=== PATIENT | female | born 1980 | race Caucasian/White ===

== ENCOUNTER → 2019-05-06 | Outpatient (CLI) | payer OTHER, SELFPAY ==
[2016-08-08 18:17] VITALS: BMI 39.9
[2019-05-06 15:44] LABS: Absolute Lymphocyte Count 2.39 X10^3/uL (0.83-4.51); Absolute Neutrophil Count 8.2 X10^3/uL (2.0-7.7); Basophil# 0.06 X10^3/uL; Basophil% 0.5 % (0-1); Eosinophil# 0.27 X10^3/uL; Eosinophils% 2.3 % (0-5); Hemoglobin 13.3 g/dL (12.0-15.0); Lymphocyte # 2.39 X10^3/ul (4.0); Lymphocyte % 20.4 % (19-41); Mean Corp Hgb Conc 32.4 g/dL (32-36); Mean Corpuscular Hgb 26.7 pg (27.0-32.0); Mean Corpuscular Volume 82.3 fL (81-99); Mean Platelet Vol. 10.7 fl (6.2-12.0); Monocyte# 0.81 X10^3/uL; Monocyte% 6.9 % (0-10); NRBC Flagged by Analyzer 0 % (0-5); Neutrophil # 8.16 X10^3/uL (2.7-7.7); Neutrophil % 69.5 % (47-70); Platelet Count 370 K/mm3 (150-450); RBC Distribution Width SD 41.2 fl (35.1-43.9); Red Blood Count 4.98 M/mm3 (4.2-5.4); White Blood Count 11.7 K/mm3 (4.4-11.0)
[2019-05-06 16:16] LABS: AST(SGOT) 11 U/L (15-37); Alanine Aminotransfer ALT/SGPT 22 U/L (13-56); Albumin, Serum 3.8 g/dL (3.2-5.0); Alkaline Phosphatase 101 U/L (45-117); Anion Gap 6 (5-15); BUN 12 mg/dL (7-18); BUN/Creat Ratio 16.8 RATIO (10-20); Calcium,Total 8.7 mg/dL (8.5-10.1); Chloride 108 mmol/L (98-107); Creatinine, Serum 0.71 mg/dL (0.55-1.02); EST Glomerular Filtration Rate 97 mL/min (>60); Est Glom Filt Rate - Afr Amer 117 mL/min (>60); Globulin 3.7 g/dL (2.2-4.2); Glucose 82 mg/dL (74-106); Potassium 3.8 mmol/L (3.5-5.1); Protein, Total 7.5 g/dL (6.4-8.2); Sodium Level 139 mmol/L (136-145)
[2019-05-09 03:06] LABS: HEPATITIS B SURFACE AG Negative (Negative); Hepatitis A AB, Total Negative (Negative); Hepatitis A IgM Antibody Negative (Negative); Hepatitis B Core AB IgM Negative (Negative); Hepatitis B Core Ab Total Negative (Negative); Hepatitis C Ab <0.1 s/co ratio (0.0-0.9); QNTFERON TB Mitogen Value > 10.00 IU/mL (.); QNTFERON TB Nil Value 0.04 IU/mL (.); QNTFERON TB1+ Ag Value 0.03 IU/mL (.); QNTFERON TB2+ Ag Value 0.05 IU/mL (.)
[2019-05-09 13:21] LABS: Hep B Surface Antibodies Non Reactive (.)
[2019-05-09 13:22] LABS: QNTIFERON TB Positive Criteria Negative (Negative)
== END | disposition home or self-care (01) ==
LOC: MTLAB 14:33
PROVIDERS: Family Provider Family Medicine; PCP Family Medicine; Referring Provider Physician Assistant Medical; Visit Provider Physician Assistant Medical
DX: L40.0 Psoriasis vulgaris (principal); Z79.899 Other long term (current) drug therapy; L73.2 Hidradenitis suppurativa; L81.1 Chloasma; L40.59 Other psoriatic arthropathy
CPT/HCPCS: 36415; 80053; 85025; 86480; 86704; 86705; 86706; 86708; 86709; 86803; 87340

== ENCOUNTER → 2019-06-29 14:39 | Outpatient (CLI) | payer OTHER, SELFPAY | PROVIDERS: Visit Provider Obstetrics & Gynecology | DX: Z12.4 Encounter for screening for malignant neoplasm of cervix (principal) ==

== ENCOUNTER → 2019-07-27 11:15 | Outpatient (CLI) | payer OTHER, SELFPAY ==
--- NOTE | 2019-07-27 11:19 | BI_ITS ---
BILATERAL DIGITAL MAMMOGRAM WITH TOMOSYNTHESIS: Mediolateraloblique and craniocaudal views demonstrate an asymmetrical nodular density in the lateral aspect of the right breast at the 9:00 position which has increased in size by 50% when compared with the previous study obtained on 07/11/2015. This probably represents a large cyst, however, underlying mass lesion cannot be completely excluded. For this reason, a targeted right breast at ultrasound at the 9:00 position is recommended for further evaluation. No cluster of microcalcifications or architectural distortion is seen. No evidence of skin thickening is identified. Breast Density: The breast tissue is extremely dense which may lower the sensitivity of mammography. CAD was used to assist in final assessment. IMPRESSION: An asymmetrical masslike nodular densities noted in the lateral aspect of the right breast 9:00 position, and a right breast ultrasound is recommended for further evaluation.. FINAL ASSESSMENT: BI-RAD CATEGORY 0 INCOMPLETE: (NEEDS ADDITIONAL IMAGINING EVALUATION) YEARLY MAMMOGRAM RECOMMENDED Approximately 10% of breast cancers are not detected by mammography. A normal mammogram should not delay biopsy of a clinically suspicious abnormality. Electronically Signed: Jimi Patrick, at 20:06 EDT Tel , Service support , BI/SCREEN MAMM (CAD) W/DANNIE GROSS
== END ==
PROVIDERS: Family Provider Family Medicine; PCP Family Medicine; Referring Provider Obstetrics & Gynecology; Visit Provider Obstetrics & Gynecology
DX: Z12.31 Encounter for screening mammogram for malignant neoplasm of breast (principal)
CPT/HCPCS: 77063; 77067

== ENCOUNTER → 2019-08-02 10:49 | Outpatient (CLI) | payer OTHER, SELFPAY ==
--- NOTE | 2019-08-02 10:52 | US_ITS ---
STUDY: ULTRASOUND BREAST - RIGHT REASON FOR EXAM: Female, 38 years old. Abnormal screening mammogram. TECHNIQUE: Axial and longitudinal images of the RIGHT breast were performed with a high resolution ultrasound transducer. COMPARISON: Comparison is made with prior mammogram dated July 27, 2019. FINDINGS: RIGHT Breast: The mammographic abnormality corresponds to a 1.3 cm x 2.4 cm x 1.2 cm irregular hypoechoic solid nodule at the 9:00 position in the breast at 6 cm from the nipple. A biopsy is recommended for further evaluation. US/Breast Limited Unilateral IMPRESSION: The mammographic abnormality corresponds to a 1.3 cm x 2.4 cm x 1.2 cm inhomogeneous irregular hypoechoic solid mass. A biopsy is recommended for further evaluation. ASSESSMENT CATEGORY: BIRADS Category 5: Highly Suggestive of Malignancy - Appropriate Action Should Be Taken. A letter regarding these results will be sent to the patient by the facility within 30 days. Electronically Signed: Osiel Jackson, at 14:25 EDT , Service support ,
== END ==
PROVIDERS: Family Provider Family Medicine; PCP Family Medicine; Referring Provider Obstetrics & Gynecology; Visit Provider Obstetrics & Gynecology
DX: R92.2 Inconclusive mammogram (principal)
CPT/HCPCS: 76642

== ENCOUNTER → 2019-08-05 13:53 | Outpatient (CLI) | payer OTHER, SELFPAY ==
[2019-08-05 12:44] VITALS: BMI 39.9
--- NOTE | 2019-08-05 12:45 | BRBX_PTH ---
PATIENT: OUMAR MIRANDA LOC: [facility] U#:[id number] AGE/SX: 44/F ROOM: RE08/05/[address]: Dr. Jesse Washington MD : [id number] BED: DIS: SPEC #: [id number] RECD: 08/05/19 13:30 STATUS: JOVANNI REEva #: [id number] ANA: 08/05/19 12:[address]: Jesse Washington DEPT: SURGICAL PATHOLOGY RECD BY: Sarah Hansen ENTERED: 08/05/19 14:43 SP TYPE: BREAST BX OTHR DR: MD Dr. Cuauhtemoc Wheat, Tissues: Right breast, NOS Procedures: Surgery Specimen Level IV HEADER OPERATION: Right breast biopsy PRE-OP DIAGNOSIS: Right breast mass TISSUE SUBMITTED: Right breast tissue ISCHEMIC TIME: <30 seconds FIXATION TIME: 6.5 hours MICROSCOPIC DIAGNOSIS Right breast tissue, core biopsy: Fibroadenoma with focal area of hyalinization. Negative for atypia or malignancy. See comment. ANTOINETTE:luisa 08/06/19 COMMENT Correlation with clinical, radiologic findings and appropriate follow up are necessary. MICROSCOPIC DESCRIPTION Slides are reviewed. GROSS DESCRIPTION Received in fixative is one container labeled with the patient's name and designated right breast biopsy. The specimen consists of multiple elongated fragments of myers-yellow fibroadipose tissue that in aggregate measure 1.5 x 0.5 x 0.1 cm. The entire specimen is submitted in one cassette. / ANTOINETTE:luisa 08/05/19 TC:1 CPT: 22808
== END ==
PROVIDERS: Family Provider Family Medicine; PCP Family Medicine; Referring Provider Surgery; Visit Provider Surgery
DX: D24.1 Benign neoplasm of right breast (principal)
CPT/HCPCS: 88305

== ENCOUNTER → 2019-12-31 16:14 | Outpatient (CLI) | payer OTHER, SELFPAY ==
[2019-08-05 12:44] VITALS: BMI 39.9
[2019-12-31 17:36] LABS: Absolute Lymphocyte Count 2.74 X10^3/uL (0.83-4.51); Absolute Neutrophil Count 8.7 X10^3/uL (2.0-7.7); Basophil# 0.07 X10^3/uL; Basophil% 0.6 % (0-1); Eosinophil# 0.22 X10^3/uL; Eosinophils% 1.8 % (0-5); Hematocrit 40.2 % (37-47); Hemoglobin 13.3 g/dL (12.0-15.0); Lymphocyte # 2.74 X10^3/ul (4.0); Lymphocyte % 21.8 % (19-41); Mean Corp Hgb Conc 33.1 g/dL (32-36); Mean Corpuscular Hgb 27.3 pg (27.0-32.0); Mean Corpuscular Volume 82.5 fL (81-99); Mean Platelet Vol. 10.2 fl (6.2-12.0); Monocyte# 0.79 X10^3/uL; Monocyte% 6.3 % (0-10); NRBC Flagged by Analyzer 0 % (0-5); Neutrophil # 8.68 X10^3/uL (2.7-7.7); Platelet Count 411 K/mm3 (150-450); RBC Distribution Width CV 12.6 % (11.6-14.6); Red Blood Count 4.87 M/mm3 (4.2-5.4); White Blood Count 12.6 K/mm3 (4.4-11.0)
[2019-12-31 17:46] LABS: AST(SGOT) 12 U/L (15-37); Alanine Aminotransfer ALT/SGPT 21 U/L (13-56); Albumin, Serum 3.8 g/dL (3.2-5.0); Alkaline Phosphatase 109 U/L (45-117); Anion Gap 4 (5-15); BUN 8 mg/dL (7-18); BUN/Creat Ratio 10.2 RATIO (10-20); Chloride 109 mmol/L (98-107); Creatinine, Serum 0.79 mg/dL (0.55-1.02); EST Glomerular Filtration Rate 86 mL/min (>60); Est Glom Filt Rate - Afr Amer 104 mL/min (>60); Globulin 3.7 g/dL (2.2-4.2); Glucose 98 mg/dL (74-106); Potassium 3.4 mmol/L (3.5-5.1); Protein, Total 7.5 g/dL (6.4-8.2); Sodium Level 141 mmol/L (136-145)
[2020-01-04 05:06] LABS: QNTFERON TB Mitogen Value > 10.00 IU/mL (.); QNTFERON TB Nil Value 0.03 IU/mL (.); QNTFERON TB1+ Ag Value 0.03 IU/mL (.); QNTFERON TB2+ Ag Value 0.02 IU/mL (.)
[2020-01-04 12:08] LABS: QNTIFERON TB Positive Criteria Negative (Negative)
== END ==
PROVIDERS: PCP Family Medicine; Referring Provider Physician Assistant Medical; Visit Provider Physician Assistant Medical
DX: L40.0 Psoriasis vulgaris (principal); L73.2 Hidradenitis suppurativa
CPT/HCPCS: 36415; 80053; 85025; 86480

== ENCOUNTER → 2020-03-15 10:04 | Outpatient (CLI) | payer OTHER, SELFPAY ==
[2019-08-05 12:44] VITALS: BMI 39.9
== END ==
PROVIDERS: PCP Family Medicine; Referring Provider Family Medicine; Visit Provider Family Medicine
DX: Z20.828 Contact with and (suspected) exposure to other viral communicable diseases (principal)
CPT/HCPCS: 87635; G2023; U0004

== ENCOUNTER → 2020-11-06 | Outpatient (CLI) | payer OTHER, SELFPAY ==
[2020-11-06 14:46] VITALS: BMI 39.0
[2020-11-10 20:11] LABS: HPV APTIMA, High Risk Negative (Negative)
== END | disposition home or self-care (01) ==
LOC: LABSPEC 16:24
PROVIDERS: PCP Family Medicine; Referring Provider Nurse Practitioner Women's Health; Visit Provider Nurse Practitioner Women's Health
DX: Z12.4 Encounter for screening for malignant neoplasm of cervix (principal)
CPT/HCPCS: 87624; 88175; G0145

== ENCOUNTER → 2020-12-28 14:13 | Outpatient (CLI) | payer OTHER, SELFPAY ==
[2020-11-06 14:46] VITALS: BMI 39.0
--- NOTE | 2020-12-28 14:17 | BI_ITS ---
MAMMOGRAPHY - BILATERAL DIAGNOSTIC REASON FOR EXAM: Female, 40 years old. History of right breast fibroadenoma. PERTINENT HISTORY: Mother with breast cancer. Aunt with breast cancer. Prior right ultrasound-guided breast biopsy with diagnosis of fibroadenoma. TECHNIQUE: Digital bilateral breast steve (3D mammographic acquisition) in the CC and MLO projections. 2-D mediolateral oblique (MLO) and craniocaudad (CC) views of both breasts were obtained. CAD: Full Field Digital Mammography with Computer Added Detection was performed. COMPARISON: Comparison is made with prior study dated 07/27/2019. FINDINGS: Breast Composition: The breasts are extremely dense, which lowers the sensitivity of mammography. There are no dominant masses or suspicious calcifications. A tissue clip marker is seen within a 1.3 cm x 1.6 cm mm well-defined nodule in the central lateral aspect of the right breast. No other significant abnormalities are identified. There has been no significant change since the prior study. BI/DIAG MAMM W/CAD, BILAT IMPRESSION: Stable bilateral diagnostic mammogram. Status post left breast biopsy. One year follow-up recommended. (A) ASSESSMENT CATEGORY: BIRADS Category 2: Benign. A letter regarding these results will be sent to the patient by the facility within 30 days. Approximately 10% of breast cancers are not detected by mammography. A normal mammogram should not delay biopsy of a clinically suspicious abnormality. Electronically Signed: Osiel Jackson MD at 12:42 EDT , Service support ,
== END ==
PROVIDERS: PCP Family Medicine; Referring Provider Nurse Practitioner Women's Health; Visit Provider Nurse Practitioner Women's Health
DX: D24.1 Benign neoplasm of right breast (principal)
CPT/HCPCS: 77062; 77066; G0279

== ENCOUNTER 2021-02-01 12:58 | Emergency (ER) | payer OTHER, SELFPAY ==
[2020-11-06 14:46] VITALS: BMI 39.0
[2021-02-01 12:59] VITALS: BP 154/83; PULSE 75; RESP 16; TEMP 36.6; O2SAT 100; BMI 37.8
--- NOTE | 2021-02-01 13:07 | CT_ITS ---
STUDY: CT ABDOMEN AND PELVIS WITHOUT CONTRAST REASON FOR EXAM: Female, 40 years old. One week history of left flank pain. RADIATION DOSAGE (If Supplied By Facility): CTDIvol = ( 19.76 ) mGy, DLP = ( 953.57 ) mGycm TECHNIQUE: Transaxial images were obtained from the dome of the diaphragm to the symphysis pubis without oral contrast, and without intravenous contrast. Sagittal and coronal images were reconstructed. Individualized dose optimization techniques were used for this CT. COMPARISON: Comparison is made with prior study dated 08/08/2016. FINDINGS: Minimal degree of increased markings at the lung bases suggests bibasilar atelectasis. The visualized portions of the heart are within normal limits. Normal liver. Normal gallbladder and extrahepatic biliary system. Normal spleen. Normal pancreas. There is a small, circumscribed, smooth, low attenuation left adrenal mass, consistent with an adrenal adenoma. This measures 2.6 cm this has increased in size since prior study. It previously measured 2 cm. Normal right adrenal gland. Normal right kidney. Normal left kidney. Normal visualized stomach. Normal small intestine. Normal colon. The appendix is visualized and appears normal. Normal abdominal aorta. Normal inferior vena cava. Normal retroperitoneum. Normal urinary bladder. Normal abdominal wall. Normal osseous structures. CT/Abdomen/Pelvis without Cont IMPRESSION: 2.6 cm adenoma and left adrenal gland. Electronically Signed: Osiel Jackson MD at 14:19 EDT , Service support ,
--- NOTE | 2021-02-01 13:09 | ED.DCSUM_ITS ---
History of Present Illness Chief Complaint: Flank Pain Informant: Patient Onset: Days Context: Gradual Onset Timing: Intermittent Current Severity: Moderate Maximum Severity: Severe Narrative: Patient is a 40-year-old female with medical history significant for hypothyroidism and hidradenitis who presents to the emergency department with left-sided flank pain. Patient states she is had a dull pain for least 2 weeks. She states over the past week, the pain has been more consistent. She states she gets waves of sharp, stabbing pain. She states she was nauseated this morning. She does admit to increased frequency of urination. She has not noticed any hematuria. She is on spironolactone, but stopped taking it 3 days ago. She has no history of kidney stone. She denies any fever. Prior similar symptoms: No Recent Illness/Hospitalization: No Past Medical History - Allergies and Home Meds Allergies/Adverse Reactions: Allergies No Known Allergies Allergy (Verified 02/01/21 13:01) Primary Care Physician: Cuauhtemoc Cummings DO [Primary Care Provider] - Prior records reviewed: Yes Past Medical History: - - Hypothyroidism, hidradenitis Surgical History: - - Smoking Status: Current some day smoker Review of Systems General: Denies: Chills, Fever, Sweats Eyes: Denies: Visual changes - bilaterally, Diplopia ENT: Denies: Rhinorrhea, Sore throat Cardiovascular: Denies: Chest pain, Palpitations Respiratory: Denies: Dyspnea, Cough, Dyspnea on exertion Gastrointestinal: Reports: Nausea. Denies: Abdominal pain, Vomiting, Diarrhea, Melena, Hematochezia Genitourinary: Reports: Frequency. Denies: Dysuria, Hematuria Musculoskeletal: Reports: Back pain. Denies: Extremity Pain Skin: Denies: Rash, Wounds Neurological: Denies: Headache, Weakness, Numbness Physical Exam Vital Signs/Narrative: Vital Signs Temp Pulse Resp BP Pulse Ox 02/01/21 12:59 97.8 F 75 16 154/83 H 100 Inital Vital Signs reviewed: Yes General: Well nourished, Well developed, No Acute Distress Head: Normocephalic, Atraumatic Eyes: Perrl, EOMI ENT: Moist mucous membranes, No rhinorrhea Neck: Supple, Nontender Cardiovascular: Regular rate, Regular rhythm, No murmurs Respiratory: No distress, CTA bilaterally, Chest nontender Abdomen: Soft, Nontender, Nondistended, Normal bowel sounds Back: Normal Inspection, CVA tenderness - Left-sided CVA tenderness Extremities: Nontender, No edema Skin: Normal color, No rash Neurological: Alert, Oriented x3, Cranial nerves II-XII grossly intact, Normal Strength, Normal Sensation Psychological: Normal affect, Normal Mood Diagnostic/Tx/Re-eval Clinical Impression(s) from Imaging Studies Abdomen/Pelvis CT 02/01/21 13:07 IMPRESSION: 2.6 cm adenoma and left adrenal gland. Electronically Signed: Osiel Jackson MD at 14:19 EDT , Service support , Abnormal Lab Results 02/01/21 02/01/21 02/01/21 13:15 13:15 13:15 WBC 10.6 RBC 4.58 Hgb 12.9 Hct 39.6 MCV 86.5 MCH 28.2 MCHC 32.6 RDW Std Deviation 41.3 RDW Coeff of Wallace 13.3 Plt Count 405 MPV 9.9 Immature Gran % (Auto) 0.500 Neut % (Auto) 65.2 Lymph % (Auto) 24.4 [place] % (Auto) 6.3 Eos % (Auto) 2.9 Baso % (Auto) 0.7 Absolute Neuts (auto) 6.9 Absolute Lymphs (auto) 2.58 Nucleated RBC % 0 Sodium 138 Potassium 3.6 Chloride 106 Carbon Dioxide 28.0 Anion Gap 4 L BUN 12 Creatinine 0.90 Estim Creat Clear Calc 71.03 Est GFR (MDRD) Af Amer 89 Est GFR (MDRD) Non-Af 74 BUN/Creatinine Ratio 13.4 Glucose 104 Calcium 8.8 Serum , Qual NEGATIVE Urine Color Urine Clarity Urine pH Ur Specific [place] Urine Protein Urine Glucose (UA) Urine Ketones Urine Occult Blood Urine Nitrite Urine Bilirubin Urine Urobilinogen Ur Leukocyte Esterase Urine RBC Urine WBC Ur Squamous Epith Cells Urine Bacteria Urine Mucus 02/01/21 13:20 WBC RBC Hgb Hct MCV MCH MCHC RDW Std Deviation RDW Coeff of Wallace Plt Count MPV Immature Gran % (Auto) Neut % (Auto) Lymph % (Auto) [place] % (Auto) Eos % (Auto) Baso % (Auto) Absolute Neuts (auto) Absolute Lymphs (auto) Nucleated RBC % Sodium Potassium Chloride Carbon Dioxide Anion Gap BUN Creatinine Estim Creat Clear Calc Est GFR (MDRD) Af Amer Est GFR (MDRD) Non-Af BUN/Creatinine Ratio Glucose Calcium Serum , Qual Urine Color Straw Urine Clarity Sl. Cloudy Urine pH 7.0 Ur Specific [place] 1.005 Urine Protein Negative Urine Glucose (UA) Normal Urine Ketones Negative Urine Occult Blood 25 H Urine Nitrite Negative Urine Bilirubin Negative Urine Urobilinogen Normal Ur Leukocyte Esterase Negative Urine RBC 0-5 SEEN Urine WBC 0 SEEN Ur Squamous Epith Cells 0-5 SEEN Urine Bacteria 0 SEEN Urine Mucus 0 SEEN - Medical Decision Making Patient presents with intermittent flank pain that is worsened over the past week. It is constant but then comes in waves with sharp stabbing symptoms. She is on spironolactone. Her skin is normal without rash or vesicles. Her abdomen is soft. IV was established. Patient was treated with analgesics with improvement. Screening labs are unremarkable. Patient underwent CT imaging. It does demonstrate a small adenoma. Otherwise, the imaging is unremarkable. There was no definitive stone. There is no obstruction. There is no evidence of other dangerous process. At this point, I am unsure of what is exactly causing the patient's pain. However, I do not suspect a dangerous process. I did domestic violence counselor her that she should follow-up with her primary care for reevaluation. The patient is comfortable with this plan of care. Impression 1. Left flank pain ED Disposition - Plan for ED Patient: Instructions: ED Flank Pain, Uncertain Cause Prescriptions: Hydrocodone Bitart/Apap 5-325 [Mohler 5MG-325MG] 1 tablet PO Q6H PRN PRN 3 Days #10 tab PRN Reason: Pain Prescription Printed Referrals: Cuauhtemoc Cummings DO [Primary Care Provider] -
[2021-02-01] MEDS: Morphine 4 MG/ML Syringe IV (13:13)
[2021-02-01] MEDS: Ondansetron 4 MG/2 ML Vial IV (13:13)
[2021-02-01] MEDS: Ketorolac 15 MG/ML Vial IV (13:13)
[2021-02-01] MEDS: 0.9% Normal Saline 1,000 ML 250 ML IV (13:13)
[2021-02-01 13:18] VITALS: RESP 16
[2021-02-01 13:22] LABS: Absolute Lymphocyte Count 2.58 X10^3/uL (0.83-4.51); Absolute Neutrophil Count 6.9 X10^3/uL (2.0-7.7); Basophil# 0.07 X10^3/uL; Basophil% 0.7 % (0-1); Eosinophil# 0.31 X10^3/uL; Eosinophils% 2.9 % (0-5); Hematocrit 39.6 % (37-47); Hemoglobin 12.9 g/dL (12.0-15.0); Lymphocyte # 2.58 X10^3/ul (0.83-4.51); Lymphocyte % 24.4 % (19-41); Mean Corp Hgb Conc 32.6 g/dL (32-36); Mean Corpuscular Hgb 28.2 pg (27.0-32.0); Mean Corpuscular Volume 86.5 fL (81-99); Mean Platelet Vol. 9.9 fl (6.2-12.0); Monocyte# 0.67 X10^3/uL; Monocyte% 6.3 % (0-10); NRBC Flagged by Analyzer 0 % (0-5); Neutrophil # 6.88 X10^3/uL (2.7-7.7); Neutrophil % 65.2 % (47-70); Platelet Count 405 K/mm3 (150-450); RBC Distribution Width CV 13.3 % (11.6-14.6); RBC Distribution Width SD 41.3 fl (35.1-43.9); Red Blood Count 4.58 M/mm3 (4.2-5.4); White Blood Count 10.6 K/mm3 (4.4-11.0)
[2021-02-01 13:29] LABS: Bacteria 0 SEEN /hpf (None Seen); Mucous, Urine 0 SEEN /hpf (<or=2+); White Blood Cells 0 SEEN /hpf (0-5)
[2021-02-01 13:33] LABS: Color, Urine Straw (Yellow); Glucose, Dipstick Normal (Normal); Ketone-Dipstick Negative (Negative); Leukocyte Esterase-Dipstick Negative /ul (Negative); Nitrite-Dipstick Negative (Negative); Occult Blood-Urine 25 /ul (Negative); Protein-Dipstick Negative (Negative); Specific Gravity, Urine 1.005 (1.002-1.030); Urine Bilirubin Dipstick Negative (Negative); Urine Clarity Sl. Cloudy (Clear); Urine Urobilinogen Normal (Normal)
[2021-02-01 13:35] LABS: Anion Gap 4 (5-15); BUN 12 mg/dL (7-18); BUN/Creat Ratio 13.4 RATIO (10-20); Calcium,Total 8.8 mg/dL (8.5-10.1); Chloride 106 mmol/L (98-107); EST Glomerular Filtration Rate 74 mL/min (>60); Est Glom Filt Rate - Afr Amer 89 mL/min (>60); Estimated Creatinine Clearance 71.03 ml/min; Glucose 104 mg/dL (74-106); Potassium 3.6 mmol/L (3.5-5.1); Sodium Level 138 mmol/L (136-145)
[2021-02-01 13:40] LABS: Red Blood Cells-Urine 0-5 SEEN /hpf (0-5); Squamous Epithelial Cells - UA 0-5 SEEN /hpf (5-10)
[2021-02-01 13:47] LABS: Internal QC Validated? YES +Cl - CLEAR BKGD; Pregnancy, Serum, hCG Quali. NEGATIVE Negative
[2021-02-01 14:39] VITALS: BP 118/62; PULSE 70; RESP 18; O2SAT 99
== END 2021-02-01 14:40 | disposition home or self-care (01) ==
LOC: ED 13:33
PROVIDERS: Emergency Provider Emergency Medicine; PCP Family Medicine
DX: R10.9 Unspecified abdominal pain (principal); R11.0 Nausea; R35.0 Frequency of micturition; D35.02 Benign neoplasm of left adrenal gland; E03.9 Hypothyroidism, unspecified; L73.2 Hidradenitis suppurativa; Z79.899 Other long term (current) drug therapy; F17.200 Nicotine dependence, unspecified, uncomplicated
CPT/HCPCS: 74176; 80048; 81001; 84703; 85025; 96361; 96374; 96375; 99283; J7030; A4216; J2405

== ENCOUNTER → 2021-03-26 10:39 | Outpatient (CLI) | payer OTHER, SELFPAY ==
[2021-03-29 03:07] LABS: QNTFERON TB Mitogen Value > 10.00 IU/mL (.); QNTFERON TB Nil Value 0 IU/mL (.); QNTFERON TB1+ Ag Value 0 IU/mL (.); QNTFERON TB2+ Ag Value 0 IU/mL (.)
[2021-03-29 08:43] LABS: QNTIFERON TB Positive Criteria Negative (Negative)
== END ==
PROVIDERS: PCP Family Medicine; Referring Provider Physician Assistant Medical; Visit Provider Physician Assistant Medical
DX: L40.0 Psoriasis vulgaris (principal)
CPT/HCPCS: 36415; 86480

== ENCOUNTER 2021-06-28 22:51 | Emergency (ER) | payer OTHER, SELFPAY ==
[2021-06-28 22:52] VITALS: BP 143/75; PULSE 59; RESP 14; TEMP 36.2; O2SAT 100; BMI 39.4
--- NOTE | 2021-06-28 23:11 | EKG12_ITS ---
Test Reason : SOB Blood Pressure : / mmHG Vent. Rate : 047 BPM Atrial Rate : 047 BPM P-R Int : 106 ms QRS Dur : 080 ms QT Int : 462 ms P-R-T Axes : 060 050 045 degrees QTc Int : 408 ms Sinus bradycardia with short ND Otherwise normal ECG Confirmed by JAMAL ROSALES, ZAC ([id number]), publications editor OUMAR MACK ([id number]) on 07/02/2021 11:52:48 AM Referred By: THANH Confirmed By:ZAC BERRY MD
--- NOTE | 2021-06-28 23:12 | ED.VIS.DYS ---
HPI <Dr. Matt Camejo DO - Last Filed: 06/29/21 01:34> Narrative Narrative: 40-year-old female presenting with symptoms of cough, loss of taste and smell, shortness of breath. Patient also states that her chest feels a little bit heavy. She feels this when she falls asleep and she wakes up to it. She does not complain of tightness but she states it feels heavy upon awakening. Patient started having symptoms of COVID-19 on the second which she thought was the start of sinusitis and she had rhinorrhea. Patient states she then flew to [place] for vacation and her symptoms evolved. Yesterday she did outpatient testing at [facility] and her result came back today. Patient has not had any fever, chills, body aches. She denies any cardiac history. No history of DVT/PE. [facility] <Dr. Matt Camejo DO - Last Filed: 06/29/21 01:34> [facility] Medical History Abnormal mammogram of right breast Allergies Anxiety Arthritis Breast lump in female Carpal tunnel syndrome GERD (gastroesophageal reflux disease) Hidradenitis High cholesterol Kidney stones PCOS (polycystic ovarian syndrome) Psoriasis Psoriatic arthritis Sleep apnea Thyroid disease UTI (urinary tract infection) Home Medications NK 06/28/21 [History Last Taken Unknown] Allergy/AdvReac Type Severity Reaction Status Date / Time No Known Allergies Allergy Verified 06/28/21 22:52 Family History Mother Breast cancer Surgical History History of bunionectomy History of History of dilatation and curettage History of loop electrical excision procedure (LEEP) Social History household members: spouse and children number of children: 1 current occupational status: employed current occupation: [employer] history of recent travel: No sexually active: Yes Smoking Status: Current some day smoker tobacco type: cigarettes alcohol intake: current alcohol intake frequency: a few times a month substance use type: does not use what type of physical activity do you participate in: none seatbelt use: always do you feel safe at home: Yes additional social history: - Paco Does Not Take Aspirin Does Take Ibuprofen As Needed ROS <Dr. Matt Camejo DO - Last Filed: 06/29/21 01:34> ROS ED Constitutional Constitutional ED: Denies chills or fever(s) Eyes Eyes: Denies blurry vision or diplopia ENT ENT ED: Reports rhinorrhea Cardiovascular Cardiovascular: Reports chest pain; Denies palpitations or racing heartbeat Respiratory/Chest Respiratory/Chest: Reports cough and dyspnea Gastrointestinal Gastrointestinal: Denies abdominal pain, diarrhea, nausea or vomiting Genitourinary Genitourinary ED: Denies dysuria or hematuria Musculoskeletal Musculoskeletal: Denies arthralgias, back pain, myalgias or neck pain Integumentary Denies Abrasions or rash Neurologic Neurologic: Denies headache(s) or paresthesias Psychiatric Psychiatric: Denies anxiety or depression EXAM <Dr. Matt Camejo, - Last Filed: 06/29/21 01:34> Physical Exam Const Vital Signs: 06/28/21 22:52 06/28/21 23:36 Temperature 97.2 F L Temperature Source Temporal Pulse Rate 59 L Respiratory Rate 14 Respiratory Effort Normal Blood Pressure 143/75 H Blood Pressure Mean 97 Pulse Ox 100 Oxygen Delivery Method Room Air Positive well nourished General Appearance ED: NAD; Negative for pallor HEENT Reports moist mucous membranes atraumatic Eyes PERRL and EOMs intact bilaterally Neck no lymphadenopathy and supple Resp normal respiratory effort and clear to auscultation bilaterally Cardio regular rhythm Rate: bradycardia Extremity normal to inspection General Extremety ED: Negative for edema or tenderness General Extremity: Negative for edema Neuro oriented x3 Sensorium / Orientation: alert Psych mental status grossly normal Skin General Skin Exam: Negative for jaundice or pallor Rashes: no rashes <LUISITO Muniz - Last Filed: 07/05/21 15:10> Physical Exam Const Vital Signs: 06/28/21 22:52 06/28/21 23:36 Temperature 97.2 F L Temperature Source Temporal Pulse Rate 59 L Respiratory Rate 14 Respiratory Effort Normal Blood Pressure 143/75 H Blood Pressure Mean 97 Pulse Ox 100 Oxygen Delivery Method Room Air MDM <Dr. Matt Camejo DO - Last Filed: 06/29/21 01:34> MDM MDM Narrative Medical decision making narrative: Patient presenting with a little bit of chest heaviness and shortness of breath. She is positive for COVID-19. She does feel little bit anxious about her symptoms. Patient had EKG on arrival which showed a sinus bradycardia with a ventricular rate of 47 bpm without sign of ischemic change on my interpretation. Chest x-ray on my interpretation shows no acute cardiopulmonary process. Lab work is all within normal limits. Procalcitonin is negative. Troponin is negative. D-dimer is negative. Given her negative work-up I feel she is safe to be discharged home at this time. She will continue to quarantine until her symptoms resolved. Lab Data Attestation: I reviewed the patient's lab results. Labs: Laboratory Results - last 24 hr 06/28/21 06/28/21 06/28/21 23:12 23:25 23:25 WBC RBC Hgb Hct MCV MCH MCHC RDW Std Deviation RDW Coeff of Wallace Plt Count MPV Immature Gran % (Auto) Neut % (Auto) Lymph % (Auto) [place] % (Auto) Eos % (Auto) Baso % (Auto) Absolute Neuts (auto) Absolute Lymphs (auto) Nucleated RBC % D-Dimer Quant (PE/DVT) <= 0.27 Sodium Potassium Chloride Carbon Dioxide Anion Gap BUN Creatinine Estim Creat Clear Calc Est GFR (MDRD) Af Amer Est GFR (MDRD) Non-Af BUN/Creatinine Ratio Glucose Calcium Total Bilirubin AST ALT Alkaline Phosphatase Troponin I High Sens 6 Total Protein Albumin Globulin Albumin/Globulin Ratio Procalcitonin < 0.04 06/28/21 06/28/21 23:25 23:25 WBC 5.9 RBC 4.39 Hgb 12.2 Hct 36.5 L MCV 83.1 MCH 27.8 MCHC 33.4 RDW Std Deviation 39.3 RDW Coeff of Wallace 12.9 Plt Count 257 MPV 10.2 Immature Gran % (Auto) 0.300 Neut % (Auto) 61.1 Lymph % (Auto) 29.4 [place] % (Auto) 8.0 Eos % (Auto) 1.0 Baso % (Auto) 0.2 Absolute Neuts (auto) 3.6 Absolute Lymphs (auto) 1.74 Nucleated RBC % 0 D-Dimer Quant (PE/DVT) Sodium 142 Potassium 3.4 L Chloride 110 H Carbon Dioxide 27.0 Anion Gap 5 BUN 9 Creatinine 0.74 Estim Creat Clear Calc 86.39 Est GFR (MDRD) Af Amer 111 Est GFR (MDRD) Non-Af 92 BUN/Creatinine Ratio 12.2 Glucose 123 H Calcium 8.4 L Total Bilirubin 0.50 AST 99 H ALT 91 H Alkaline Phosphatase 86 Troponin I High Sens Total Protein 7.0 Albumin 3.6 Globulin 3.4 Albumin/Globulin Ratio 1.1 Procalcitonin Radiography Diagnostic Testing: Radiology Impression Chest X-Ray 06/28/21 23:36 IMPRESSION: No acute abnormal cardiopulmonary finding. Electronically Signed: Tyson Zaldivar MD at 0:16 EDT Tel , Service support , <VIDA MunizC - Last Filed: 07/05/21 15:10> BARBRA Lab Data Labs: Laboratory Results - last 24 hr 06/28/21 06/28/21 06/28/21 23:12 23:25 23:25 WBC RBC Hgb Hct MCV MCH MCHC RDW Std Deviation RDW Coeff of Wallace Plt Count MPV Immature Gran % (Auto) Neut % (Auto) Lymph % (Auto) [place] % (Auto) Eos % (Auto) Baso % (Auto) Absolute Neuts (auto) Absolute Lymphs (auto) Nucleated RBC % D-Dimer Quant (PE/DVT) <= 0.27 Sodium Potassium Chloride Carbon Dioxide Anion Gap BUN Creatinine Estim Creat Clear Calc Est GFR (MDRD) Af Amer Est GFR (MDRD) Non-Af BUN/Creatinine Ratio Glucose Calcium Total Bilirubin AST ALT Alkaline Phosphatase Troponin I High Sens 6 Total Protein Albumin Globulin Albumin/Globulin Ratio Procalcitonin < 0.04 06/28/21 06/28/21 23:25 23:25 WBC 5.9 RBC 4.39 Hgb 12.2 Hct 36.5 L MCV 83.1 MCH 27.8 MCHC 33.4 RDW Std Deviation 39.3 RDW Coeff of Wallace 12.9 Plt Count 257 MPV 10.2 Immature Gran % (Auto) 0.300 Neut % (Auto) 61.1 Lymph % (Auto) 29.4 [place] % (Auto) 8.0 Eos % (Auto) 1.0 Baso % (Auto) 0.2 Absolute Neuts (auto) 3.6 Absolute Lymphs (auto) 1.74 Nucleated RBC % 0 D-Dimer Quant (PE/DVT) Sodium 142 Potassium 3.4 L Chloride 110 H Carbon Dioxide 27.0 Anion Gap 5 BUN 9 Creatinine 0.74 Estim Creat Clear Calc 86.39 Est GFR (MDRD) Af Amer 111 Est GFR (MDRD) Non-Af 92 BUN/Creatinine Ratio 12.2 Glucose 123 H Calcium 8.4 L Total Bilirubin 0.50 AST 99 H ALT 91 H Alkaline Phosphatase 86 Troponin I High Sens Total Protein 7.0 Albumin 3.6 Globulin 3.4 Albumin/Globulin Ratio 1.1 Procalcitonin Radiography Diagnostic Testing: Radiology Impression Chest X-Ray 06/28/21 23:36 IMPRESSION: No acute abnormal cardiopulmonary finding. Electronically Signed: Tyson Zaldivar MD at 0:16 EDT Tel , Service support , Discharge Plan Triage Chief Complaint: Shortness of Breath ED Provider: Matt Camejo Dx/Rx/DC Orders Instructions: Coronavirus Disease 2019 (COVID-19): Caring for Yourself or Others, ED Chest Pain, Noncardiac Prescriptions: No Action NK RF: 0 Primary Care Provider: Cuauhtemoc Cummings Referrals: Cuauhtemoc Cummings DO [Primary Care Provider] - Disposition Disposition: Home, Self Care Discharge Date/Time: 06/29/21 01:51 <LUISITO Muniz - Last Filed: 07/05/21 15:10> Addendum Details:: Chart reviewed while patient in ED. No decisions were made by me regarding ED course of treatment.
[2021-06-28 23:33] LABS: Absolute Lymphocyte Count 1.74 X10^3/uL (0.83-4.51); Absolute Neutrophil Count 3.6 X10^3/uL (2.0-7.7); Basophil# 0.01 X10^3/uL; Basophil% 0.2 % (0-1); Eosinophil# 0.06 X10^3/uL; Hematocrit 36.5 % (37-47); Hemoglobin 12.2 g/dL (12.0-15.0); Lymphocyte # 1.74 X10^3/ul (0.83-4.51); Lymphocyte % 29.4 % (19-41); Mean Corp Hgb Conc 33.4 g/dL (32-36); Mean Corpuscular Hgb 27.8 pg (27.0-32.0); Mean Corpuscular Volume 83.1 fL (81-99); Mean Platelet Vol. 10.2 fl (6.2-12.0); Monocyte# 0.47 X10^3/uL; NRBC Flagged by Analyzer 0 % (0-5); Neutrophil # 3.61 X10^3/uL (2.7-7.7); Neutrophil % 61.1 % (47-70); Platelet Count 257 K/mm3 (150-450); RBC Distribution Width CV 12.9 % (11.6-14.6); RBC Distribution Width SD 39.3 fl (35.1-43.9); Red Blood Count 4.39 M/mm3 (4.2-5.4); White Blood Count 5.9 K/mm3 (4.4-11.0)
--- NOTE | 2021-06-28 23:36 | RAD_ITS ---
STUDY: X-RAY CHEST REASON FOR EXAM: Female, 40 years old. Cough TECHNIQUE: Portable, upright, AP chest radiograph COMPARISON: None. FINDINGS: The lungs are clear and expanded. There is no demonstrated pleural abnormality. Normal size heart. Normal mediastinum and jose elias. Normal visualized pulmonary arteries. Normal visualized aortic arch and descending thoracic aorta. Normal visualized thoracic spine. Normal visualized ribs, clavicles, and shoulders. There is no demonstrated abnormality of the visualized soft tissue structures of the upper abdomen. RAD/Chest 1 View (Portable) IMPRESSION: No acute abnormal cardiopulmonary finding. Electronically Signed: Tyson Zaldivar MD at 0:16 EDT Tel , Service support ,
[2021-06-29 00:04] LABS: ALB/GLOB Ratio 1.1 RATIO (0.9-2.4); AST(SGOT) 99 U/L (15-37); Alanine Aminotransfer ALT/SGPT 91 U/L (13-56); Albumin, Serum 3.6 g/dL (3.2-5.0); Alkaline Phosphatase 86 U/L (45-117); Anion Gap 5 (5-15); BUN 9 mg/dL (7-18); BUN/Creat Ratio 12.2 RATIO (10-20); Calcium,Total 8.4 mg/dL (8.5-10.1); Chloride 110 mmol/L (98-107); Creatinine, Serum 0.74 mg/dL (0.55-1.02); EST Glomerular Filtration Rate 92 mL/min (>60); Est Glom Filt Rate - Afr Amer 111 mL/min (>60); Estimated Creatinine Clearance 86.39 ml/min; Globulin 3.4 g/dL (2.2-4.2); Glucose 123 mg/dL (74-106); Potassium 3.4 mmol/L (3.5-5.1); Sodium Level 142 mmol/L (136-145)
[2021-06-29 00:17] LABS: Procalcitonin < 0.04 ng/mL (0.00-0.09)
[2021-06-29 00:20] LABS: D-Dimer Quantitative (DVT/PE) <= 0.27 FEU/ug/m (0.27-0.49)
[2021-06-29 00:50] LABS: Troponin-I HS 6 pg/mL (3.0-54.0)
[2021-06-29 01:50] VITALS: O2SAT 97
== END 2021-06-29 01:51 | disposition home or self-care (01) ==
PROVIDERS: Emergency Provider Student in an Organized Health Care Education/Training Program; PCP Family Medicine
DX: U07.1 COVID-19 (principal); J12.82 Pneumonia due to coronavirus disease 2019; R07.89 Other chest pain; E28.2 Polycystic ovarian syndrome; L40.50 Arthropathic psoriasis, unspecified; F17.210 Nicotine dependence, cigarettes, uncomplicated
CPT/HCPCS: 71045; 80053; 84145; 84484; 85025; 85379; 93005; 99282; A4216

== ENCOUNTER 2022-01-23 12:57 | Outpatient (CLI) | payer OTHER, SELFPAY ==
--- NOTE | 2022-01-23 12:58 | US_ITS ---
STUDY: SUPERFICIAL ULTRASOUND - RIGHT AXILLA. REASON FOR EXAM: Female, 41 years old. Lump in right axilla TECHNIQUE: A superficial ultrasound was performed with real-time and static [place]ol[place]-scale imaging. COMPARISON: None. FINDINGS: Targeted sonogram of the right axilla was performed. There is a 7 mm x 6 mm x 3 mm slightly irregular hypoechoic nodular density just deep to the skin surface. A sebaceous cyst should be ruled out. US/Ext Non Vasc Limited/Soft Tiss IMPRESSION: 7 mm x 6 mm x 3 mm hypoechoic slightly irregular density just deep to the skin surface. This may represent an infected sebaceous cyst. Electronically Signed: Osiel Jackson MD at 14:57 EDT ,
--- NOTE | 2022-01-23 12:58 | BI_ITS ---
MAMMOGRAPHY - BILATERAL SCREENING REASON FOR EXAM: Female, 41 years old. Routine annual screening examination. PERTINENT HISTORY: Mother with breast cancer. Aunt with breast cancer. Prior right breast biopsy. TECHNIQUE: Digital bilateral breast dannie (3D mammographic acquisition) in the CC and MLO projections. 2-D mediolateral oblique (MLO) and craniocaudad (CC) views of both breasts were obtained. CAD: Full Field Digital Mammography with Computer Added Detection was performed. COMPARISON: Comparison is made with prior examination dated 12/28/2020 and 12/25/2018. FINDINGS: Breast Composition: The breasts are extremely dense, which lowers the sensitivity of mammography. There are no dominant masses or suspicious calcifications. A tissue clip marker is once again seen within a 1.4 x 1.4 cm well-defined nodule in the central lateral aspect of the right breast. No other significant abnormalities are identified. There has been no significant change since the prior study. BI/SCRN MAMM (CAD)W/DANNIE BILAT IMPRESSION: Stable bilateral screening mammogram. Yearly follow-up mammogram recommended. (A) ASSESSMENT CATEGORY: BIRADS Category 2: Benign. A letter regarding these results will be sent to the patient by the facility within 30 days. Approximately 10% of breast cancers are not detected by mammography. A normal mammogram should not delay biopsy of a clinically suspicious abnormality. [id number] Electronically Signed: Osiel Jackson MD at 14:01 EDT ,
== END 2022-01-23 23:59 | disposition home or self-care (01) ==
LOC: OPBI 12:57
PROVIDERS: PCP Family Medicine; Visit Provider Nurse Practitioner Women's Health
DX: Z12.31 Encounter for screening mammogram for malignant neoplasm of breast (principal); Z80.3 Family history of malignant neoplasm of breast
CPT/HCPCS: 76882; 77063; 77067

== ENCOUNTER 2022-09-19 16:14 | Outpatient (CLI) | payer OTHER, SELFPAY ==
[2022-09-19 18:20] LABS: Color, Urine Yellow (Yellow); Glucose, Dipstick Normal (Normal); Ketone-Dipstick Negative (Negative); Leukocyte Esterase-Dipstick Negative /ul (Negative); Nitrite-Dipstick Negative (Negative); Occult Blood-Urine 50 /ul (Negative); Protein-Dipstick Negative (Negative); Specific Gravity, Urine 1.015 (1.002-1.030); Urine Bilirubin Dipstick Negative (Negative); Urine Clarity Clear (Clear); Urine Urobilinogen Normal (Normal)
[2022-09-19 18:35] LABS: ALB/GLOB Ratio 0.9 RATIO (0.9-2.4); AST(SGOT) 14 U/L (15-37); Alanine Aminotransfer ALT/SGPT 23 U/L (13-56); Albumin, Serum 3.4 g/dL (3.2-5.0); Alkaline Phosphatase 93 U/L (45-117); Anion Gap 4 (5-15); BUN 15 mg/dL (7-18); BUN/Creat Ratio 19.9 RATIO (10-20); Calcium,Total 8.9 mg/dL (8.5-10.1); Chloride 106 mmol/L (98-107); Cholesterol 174 mg/dL (200); Creatinine, Serum 0.76 mg/dL (0.55-1.02); EST Glomerular Filtration Rate 89 mL/min (>60); Est Glom Filt Rate - Afr Amer 108 mL/min (>60); Globulin 3.6 g/dL (2.2-4.2); Glucose 106 mg/dL (74-106); High Density Lipoprotein 32 mg/dL; Potassium 3.7 mmol/L (3.5-5.1); Sodium Level 139 mmol/L (136-145); T4 Free Direct 0.85 ng/dL (0.76-1.46); Thyroid Stim Hormone (TSH) 6.35 uIU/mL (0.358-3.74); Triglycerides 237 mg/dL; Very Low Density Lipoprotein 47 mg/dL (5-40)
== END 2022-09-19 23:59 | disposition home or self-care (01) ==
LOC: BFHLAB 16:15
PROVIDERS: PCP Family Medicine; Visit Provider Family Medicine
DX: E88.81 Metabolic syndrome and other insulin resistance (principal); E03.9 Hypothyroidism, unspecified
CPT/HCPCS: 36415; 80053; 80061; 81002; 83036; 84439; 84443

== ENCOUNTER → 2023-01-27 | Outpatient (CLI) | payer OTHER, SELFPAY ==
--- NOTE | 2023-01-27 15:29 | BI_ITS ---
MAMMOGRAPHY - BILATERAL SCREENING 3-D TOMOSYNTHESIS REASON FOR EXAM: Female, 42 years old. SCREENING PERTINENT HISTORY: Mother, and aunt with breast cancer. TECHNIQUE: 2-D mammograms and 3-D Tomosynthesis of the breast (s) were performed. CAD was performed. COMPARISON: 12/28/2020 FINDINGS: The breast composition is extremely dense. Scattered benign calcifications are seen. No dense spiculated masses or suspicious microcalcifications are identified. No architectural distortion is identified. There is no skin thickening or retraction. Stable appearance of a well-defined 1 cm nodule in the central right breast which has been previously biopsied. There has been no significant change since the prior study. BI/SCRN MAMM (CAD)W/DANNIE BILAT IMPRESSION: No mammographic signs of malignancy. Routine yearly mammograms recommended. ASSESSMENT CATEGORY: BIRADS Category 2: Benign. A letter regarding these results will be sent to the patient by the facility within 30 days. FOLLOW UP RECOMMENDATION: Yearly follow up mammogram recommended. (A) Approximately 10% of breast cancers are not detected by mammography. A normal mammogram should not delay biopsy of a clinically suspicious abnormality. Electronically Signed: Hal Mercer MD at 7:39 EDT ,
== END | disposition home or self-care (01) ==
LOC: OPBI 15:27
PROVIDERS: PCP Family Medicine; Visit Provider Nurse Practitioner Women's Health
DX: Z12.31 Encounter for screening mammogram for malignant neoplasm of breast (principal); Z80.3 Family history of malignant neoplasm of breast
CPT/HCPCS: 77063; 77067

== ENCOUNTER → 2023-02-04 | Outpatient (CLI) | payer OTHER, SELFPAY ==
--- NOTE | 2023-02-04 15:31 | US_ITS ---
STUDY: ULTRASOUND OF THE FEMALE PELVIS - COMPLETE REASON FOR EXAM: Female, 42 years old.. Irregular vaginal bleeding. LMP: January 16, 2023 TECHNIQUE: Transabdominal and Transvaginal TECHNICAL QUALITY: Adequate. COMPARISON: CT of the abdomen and pelvis, February 01, 2021. FINDINGS: The uterus is anteverted and is in a midline position. The uterus measures 10.5 x 5.5 x 4.0 cm. There is a Nabothian cyst of the cervix. The endometrium measures 7 mm in thickness, and is hyperechoic. Minimal fluid is seen within the endometrial cavity. There is no demonstrated myometrial mass. I.U.D. - The patient does not have an I.U.D. The right ovary is visualized. The right ovary measures 3.2 x 2.6 x 2.2 cm. There are multiple follicles of the right ovary without a dominant cyst. There is no visualized right adnexal mass or complex lesion. There is normal arterial and normal venous vascularity. The left ovary is visualized. The left ovary measures 3.7 x 2.2 x 1.8 cm. There is no left ovarian cyst or ovarian mass. There is no visualized left adnexal mass or complex lesion. There is normal arterial and normal venous vascularity. There is no fluid in the cul-de-sac. The pre void volume of the bladder was 419 ml. The urinary bladder appears grossly normal. Polycystic ovary disease: No. US/Pelvic w/ Transvaginal IMPRESSION: 1. Fluid within the endometrial canal. The uterus is otherwise grossly normal. 2. Normal bilateral ovaries. Electronically Signed: Lopez Claire DO at 19:37 EDT ,
== END | disposition home or self-care (01) ==
PROVIDERS: PCP Family Medicine; Referring Provider Nurse Practitioner Women's Health; Visit Provider Nurse Practitioner Women's Health
DX: N92.0 Excessive and frequent menstruation with regular cycle (principal)
CPT/HCPCS: 76830; 76856

== ENCOUNTER → 2023-10-16 | Outpatient (CLI) | payer OTHER, SELFPAY ==
--- OUTSIDE RECORDS SUMMARY | 2023-10-16 12:54 | XMS RPT_ITS | CCD ---
Author Name Unknown Address [address] [place] [address] Organization [facility] Care Team Providers Care Publications Manager Name Role Phone ROSE OKEEFE Consulting Unavailable PRICILA, DR MACEY Lin Admitting Unavaila ble PRICILA, DR MACEY Lin Primary Care Unavaila ble PRICILA, DR MACEY Lin Attending Unavaila ble PROVIDER, UNKNOWN Consulting Unavailable PRICILA, DR MACEY Lin Admitting Unavaila ble PRICILA, DR MACEY Lin Primary Care Unavaila ble PRICILA, DR MACEY Lin Attending Unavaila ble ROSE OKEEFE Consulting Unavailable PROVIDER, UNKNOWN Consulting Unavailable Zoila DO, Rose Fonseca Primary Care Provider ROSE OKEEFE Primary Care Unavailable Medications Current Medications Medication Drug Class(es) Dates Sig (Normalized) Sig (Original) amoxicillin 875 mg oral tablet (1 source) Penicillin-class Antibacterial Start: 08-24-2022 End: 08-31-2022 take 1 tablet by mouth twice daily amoxicillin (AMOXIL) 875 mg tablet Take 1 tablet by mouth twice daily for 7 days. 14 tablet 0 08/24/2022 08/31/2022 Active Completed/Discontinued Medications Medication Drug Class(es) Dates Sig (Normalized) Sig (Original) [id number] 200 actuat albuterol 0.09 mg/actuat metered dose inhaler (1 source) beta2-Adrenergic Agonist Start: 03-15-2015 take 2 puff(s) by inhalation every six hours as needed for wheezing albuterol HFA (PROVENTIL HFA, VENTOLIN HFA) 90 mcg/actuation inhaler Indications: Acute sinusitis Inhale 2 Puffs as instructed every 6 hours as needed for Wheezing/Shortnes s of Breath. 1 Inhaler 2 03/15/2015 Active Problems Active Problems Problem Classification Problem Date Documented Da te Episodic/Chronic Acquired foot deformities (1 source) Acquired hallux valgus; Translations: [Hallux valgus (acquired), unspecified foot] Onset: 06-15-2010 06-15-2010 Chronic Headache; including migraine (1 source) Headache; including migraine; Translations: [Headache, unspecified] Onset: 11-08-2020 Otitis media and related conditions (1 source) Acute left otitis media; Translations: [Otitis media, unspecified, left ear] Episodic Thyroid disorders (1 source) Hypothyroidism; Translations: [Hypothyroidism, unspecified] Onset: 11-19-2011 10-15-2021 Chronic Unclassified (1 source) CONTACT WITH AND SUSPECTED EXPOSURE TO COVID-19; Translations: [CONTACT WITH AND SUSPECTED EXPOSURE TO COVID-19] Onset: 06-28-2021 Viral infection (1 source) COVID-19; Translations: [COVID-19] Onset: 06-28-2021 Past or Other Problems Problem Classification Problem Date Documented Da te Episodic/Chronic Nausea and vomiting (3 sources) Vomiting, unspecified; Translations: [Vomiting, unspecified] Onset: 11-08-2020 Episodic Other gastrointestinal disorders (1 source) Diarrhea, unspecified; Translations: [Diarrhea, unspecified] Onset: 11-08-2020 Episodic Other nervous system disorders (1 source) Abnormal gait; Translations: [Unspecified abnormalities of gait and mobility] Onset: 05-30-2010 05-30-2010 Episodic Unclassified (1 source) CONTACT WITH AND SUSPECTED EXPOSURE TO COVID-19; Translations: [CONTACT WITH AND SUSPECTED EXPOSURE TO COVID-19] Onset: 06-28-2021 Results Test Name Value Interpretation Reference Range Facil ity Vital Signs Date Time Vital Sign Value Performing Clinician Lisai huber 08-24-2022 10:26-0400 Body temperature 97.11 [degF] Shagufta Perry APRN.CNP Work Phone: [facility] 08-24-2022 10:26-0400 Body weight 107.05 kg Shagufta Perry APRN.CNP Work Phone: [facility] 08-24-2022 10:26-0400 Diastolic blood pressure 90 mm[Hg] Shagufta Perry APRN.CNP Work Phone: [facility] 08-24-2022 10:26-0400 Heart rate 85 /min Shagufta Perry APRN.BOB Work Phone: [facility] 08-24-2022 10:26-0400 Respiratory rate 20 /min Shagufta Perry APRN.BOB Work Phone: [facility] 08-24-2022 10:26-0400 SaO2% (BldA) [Mass fraction] 99 % Shagufta Perry COLLISION CENTER MANAGER.BOB Work Phone: [facility] 08-24-2022 10:26-0400 Systolic blood pressure 142 mm[Hg] Shagufta Perry COLLISION CENTER MANAGER.BOB Work Phone: [facility] Encounters Encounter Date Encounter Type Care Provider Facility Start: 08-24-2022 End: 08-24-2022 [facility] Facility:[facility] Start: 08-24-2022 End: 08-24-2022 Patient encounter procedure Shagufta Perry APRN.BOB Work Phone: [facility] Procedures Date Procedure Procedure Detail Performing Clinician Start: 07-11-2015 Mammography Shagufta mota COLLISION CENTER MANAGER.BOB Work Phone: Plan of Treatment Date Care Activity Detail Author Start: 06-20-2022 Influenza vaccination INFLUENZA (#1) [facility] Start: 10-20-2021 DEPRESSION ASSESSMENT DEPRESSION ASS ESSMENT [facility] Start: 2019 Mammography MAMMOGRAM [facility] Start: 11-20-2015 PAP TESTING PAP TESTING [facility] Start: 2009 HPV TESTING HPV TESTING [facility] Start: 1998 Urine microalbumin profile DTAP,TDAP,TD (1 - Tdap) [facility] Start: 1997 ANNUAL PCP TEAM SHIP WORKER LEE DISEASE VISIT ANNUAL PCP TEAM CHRONIC DISEASE VISIT [facility] Start: 1997 HEPATITIS C SCREENING HEPATITIS C SC LIZETH [facility] Start: 1997 HIV SCREENING HIV SCREENING [facility] Start: 1985 PNEUMOCOCCAL (1 - PCV) PNEUMOCOCCAL (1 - PCV) [facility] Start: 05-12-1980 COVID-19 VACCINE (#1) COVID-19 VACCI NE (#1) [facility] Start: 1979 HEPATITIS B (1 of 3 - 3-dose series) HEPATITIS B (1 of 3 - 3-dose series) [facility] Payers Date Payer Category Payer Private Health Insurance [id number] 2021 Unknown LIMITED BENEFITS PLAN [employer] [id number] 2021-Present [phone] [address] [address] [place] [address] Other [id number] 1979 Unknown [id number] 1979 Unknown [id number] Unknown [id number] Social History Date Type Detail Facility Start: 08-24-2022 Tobacco smoking stat [facility] Smokes tobacco daily [facility] History of tobacco use Cigarette Smoker [facility] Start: 08-24-2022 Cigarettes smoked cu rrent (pack per day) - Reported 1 [facility] Start: 08-24-2022 Tobacco use and exposure Smoke less tobacco non-user [facility] Start: 08-24-2022 Alcohol intake 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 Had been on Wellbutrin in past which had helped at the time. [facility] Start: 1980 Sex Assigned At Not on file C [facility] Progress note 08-24-2022 Note Date & Type Note Facility 08-24-2022 Note HNO ID: [id number] Author: Shagufta Perry APRN.ELECTRICAL EQUIPMENT ASSEMBLER Service: ? Author Type: Nurse Practitioner Type: Progress Notes Filed: 08/24/2022 11:03 AM Note Text: Subjective HPI Oumar presents with pain in the left ear for a week, she states the pain became sever yesterday and remains severe today, she feels well otherwise. She has hx of otitis Blood pressure 142/90, pulse 85, temperature 36.2 ?C (97.1 ?F), resp. rate 20, weight 107 kg (236 lb), last menstrual period 07/01/2017, SpO2 99 %. PAST MEDICAL HISTORY Diagnosis Date Female infertility of other specified origin Unspecified hypothyroidism Followed by Dr Reyes PAST SURGICAL HISTORY Procedure Laterality Date DELIVERY+ CARE 2005 CONIZATION CERVIX W/WO DANDC RPR ELTRD EXC 2003 LEEP-Cervix DILATION AND CURETTAGE DXAND/THER NONOBSTETRIC 08/2009 Dilation AND curettage ALLERGIES Patient has no known allergies. MEDICATIONS fexofenadine-pseudoephedrine (LILY-D) 60-120 mg per tablet Take 1 tablet by mouth twice daily. fluticasone (FLONASE) 50 mcg/actuation nasal spray Use 1-2 Sprays in each nostril once daily. multivitamins(DAILY MULTIVITAMIN TAB) Take one(1) tablet daily. amoxicillin (AMOXIL) 875 mg tablet Take 1 tablet by mouth twice daily for 7 days. levothyroxine (SYNTHROID) 50 mcg tablet TAKE ONE TABLET BY MOUTH ONCE DAILY (Patient not taking: Reported on 08/24/2022) citalopram (CELEXA) 20 mg tablet Take 1 tablet by mouth once daily. (Patient not taking: Reported on 08/24/2022) guaiFENesin (MUCINEX) 600 mg 12 hr tablet Take 2 tablets by mouth twice daily. benzonatate (TESSALON PERLE) 100 mg capsule Take 1 capsule by mouth three times daily as needed. Varenicline (CHANTIX) 0.5 mg (11)- 1 mg (42) tablet Starting pack (1 month supply) - follow directions on package for dosing. (Patient not taking: Reported on 08/24/2022) albuterol HFA (PROVENTIL HFA, VENTOLIN HFA) 90 mcg/actuation inhaler Inhale 2 Puffs as instructed every 6 hours as needed for Wheezing/Shortness of Breath. FAMILY HISTORY Problem Relation Age of Onset Thyroid Father one side enlarged, not on meds Arthritis Maternal Grandmother None Maternal Grandfather Heart Paternal Grandfather Diabetes Paternal Grandfather Diet controlled Diabetes Mother Borderline Lipids Mother Breast Cancer Mother 55 DCIS Social History Tobacco Use Smoking status: Every Day Packs/day: 1.00 Years: 15.00 Pack years: 15.00 Types: Cigarettes Smokeless tobacco: Never Tobacco comments: Quit during , restarted afterwards. Had been on Wellbutrin in past which had helped at the time. Substance Use Topics Alcohol use: No Drug use: No Review of Systems HENT: Positive for ear pain. Objective Physical Exam Constitutional: Appearance: Normal appearance. HENT: Head: Normocephalic and atraumatic. Right Ear: Tympanic membrane, ear canal and external ear normal. There is no impacted cerumen. Left Ear: External ear normal. There is no impacted cerumen. Ears: Comments: Left TM erythremic and dull Nose: Nose normal. Mouth/Throat: Mouth: Mucous membranes are dry. Eyes: Extraocular Movements: Extraocular movements intact. Pupils: Pupils are equal, round, and reactive to light. Cardiovascular: Rate and Rhythm: Normal rate and regular rhythm. Pulses: Normal pulses. Heart sounds: Normal heart sounds. Pulmonary: Effort: Pulmonary effort is normal. Breath sounds: Normal breath sounds. Musculoskeletal: Cervical back: Normal range of motion and neck supple. Lymphadenopathy: Cervical: No cervical adenopathy. Skin: General: Skin is warm and dry. Neurological: Mental Status: She is alert. ASSESSMENT/PLAN: 1. Acute otitis media, left - ICD9: 382.9, ICD10: H66.92 - Will begin treatment with Amoxicillin for 7 days - using otc generic antihistamine due to allergy seasonal Follow up if not improving in 2-3 days Shagufta Perry APRN.[facility] History of Present illness Narrative 08-24-2022 Shagufta Perry APRN.ELECTRICAL EQUIPMENT ASSEMBLER - 08/24/2022 10:58 AM EDT Note Date & Type Note Facility 08-24-2022 History of Presen t illness Narrative Subjective HPI Oumar presents with pain in the left ear for a week, she states the pain became sever yesterday and remains severe today, she feels well otherwise. She has hx of otitis Blood pressure 142/90, pulse 85, temperature 36.2 C (97.1 F), resp. rate 20, weight 107 kg (236 lb), last menstrual period 07/01/2017, SpO2 99 %. PAST MEDICAL HISTORY Diagnosis Date Female infertility of other specified origin Unspecified hypothyroidism Followed by Dr Reyes PAST SURGICAL HISTORY Procedure Laterality Date DELIVERY+ CARE 2005 CONIZATION CERVIX W/WO D&C RPR ELTRD EXC 2003 LEEP-Cervix DILATION & CURETTAGE DX&/THER NONOBSTETRIC 08/2009 Dilation & curettage ALLERGIES Patient has no known allergies. MEDICATIONS fexofenadine-pseudoephedrine (LILY-D) 60-120 mg per tablet Take 1 tablet by mouth twice daily. fluticasone (FLONASE) 50 mcg/actuation nasal spray Use 1-2 Sprays in each nostril once daily. multivitamins(DAILY MULTIVITAMIN TAB) Take one(1) tablet daily. amoxicillin (AMOXIL) 875 mg tablet Take 1 tablet by mouth twice daily for 7 days. levothyroxine (SYNTHROID) 50 mcg tablet TAKE ONE TABLET BY MOUTH ONCE DAILY (Patient not taking: Reported on 08/24/2022) citalopram (CELEXA) 20 mg tablet Take 1 tablet by mouth once daily. (Patient not taking: Reported on 08/24/2022) guaiFENesin (MUCINEX) 600 mg 12 hr tablet Take 2 tablets by mouth twice daily. benzonatate (TESSALON PERLE) 100 mg capsule Take 1 capsule by mouth three times daily as needed. Varenicline (CHANTIX) 0.5 mg (11)- 1 mg (42) tablet Starting pack (1 month supply) - follow directions on package for dosing. (Patient not taking: Reported on 08/24/2022) albuterol HFA (PROVENTIL HFA, VENTOLIN HFA) 90 mcg/actuation inhaler Inhale 2 Puffs as instructed every 6 hours as needed for Wheezing/Shortness of Breath. FAMILY HISTORY Problem Relation Age of Onset Thyroid Father one side enlarged, not on meds Arthritis Maternal Grandmother None Maternal Grandfather Heart Paternal Grandfather Diabetes Paternal Grandfather Diet controlled Diabetes Mother Borderline Lipids Mother Breast Cancer Mother 55 DCIS Social History Tobacco Use Smoking status: Every Day Packs/day: 1.00 Years: 15.00 Pack years: 15.00 Types: Cigarettes Smokeless tobacco: Never Tobacco comments: Quit during , restarted afterwards. Had been on Wellbutrin in past which had helped at the time. Substance Use Topics Alcohol use: No Drug use: No Review of Systems HENT: Positive for ear pain. Objective Physical Exam Constitutional: Appearance: Normal appearance. HENT: Head: Normocephalic and atraumatic. Right Ear: Tympanic membrane, ear canal and external ear normal. There is no impacted cerumen. Left Ear: External ear normal. There is no impacted cerumen. Ears: Comments: Left TM erythremic and dull Nose: Nose normal. Mouth/Throat: Mouth: Mucous membranes are dry. Eyes: Extraocular Movements: Extraocular movements intact. Pupils: Pupils are equal, round, and reactive to light. Cardiovascular: Rate and Rhythm: Normal rate and regular rhythm. Pulses: Normal pulses. Heart sounds: Normal heart sounds. Pulmonary: Effort: Pulmonary effort is normal. Breath sounds: Normal breath sounds. Musculoskeletal: Cervical back: Normal range of motion and neck supple. Lymphadenopathy: Cervical: No cervical adenopathy. Skin: General: Skin is warm and dry. Neurological: Mental Status: She is alert. ASSESSMENT/PLAN: 1. Acute otitis media, left - ICD9: 382.9, ICD10: H66.92 - Will begin treatment with Amoxicillin for 7 days - using otc generic antihistamine due to allergy seasonal Follow up if not improving in 2-3 days Shagufta Perry APRN.ELECTRICAL EQUIPMENT ASSEMBLER documented in this encounter [facility] Evaluation note Note Date & Type Note Facility documented in this encounter [facility] Summary Purpose Family History No Family History Records FoundNo Family History Records FoundNo Family History Records Found Advance Directives No Advanced Directives Records FoundNo Advanced Directives Records FoundNo Advanced Directives Records Found Additional Source Comments INFORMATION SOURCE (unrecogn ized section and content) DATE CREATED AUTHOR AUTHOR'S ORGANIZ ATION 07/10/[address] [facility] DATE CREATED AUTHOR AUTHOR'S ORGANIZ ATION 08/24/2022 [facility] Source Comments (unrecognize d section and content) In the event this informatio n is protected by the Federal Confidentiality of Alcohol and Drug Abuse Patient Records regulations: The Federal rules restrict any use of the information to criminally investigate or prosecute any alcohol or drug abuse patient.[facility] Reason for Visit (unrecogniz ed section and content) Care Teams (unrecognized sec tion and content) FOR RECORDS PERTAINING TO PATIENTS WHO ARE OR HAVE BEEN ENROLLED IN A CHEMICAL DEPENDENCY/SUBSTANCEABUSE PROGRAM, SOME INFORMATION MAY BE OMITTED. This clinical summary was aggregated from multiple sources. Caution should be exercised in using it in the provision of clinical care. This summary normalizes information from multiple sources, and as a consequence, information in this document may materially change the coding, format and clinical context of patient data. In addition, data may be omitted in some cases. CLINICAL DECISIONS SHOULD BE BASED ON THE PRIMARY CLINICAL RECORDS. [facility]. provides no warranty or guarantee of the accuracy or completeness of information in this document.
[2023-10-18 15:07] LABS: Hepatitis B Core Ab Total Negative (Negative); QNTFERON TB Mitogen Value > 10.00 IU/mL (.); QNTFERON TB Nil Value 0 IU/mL (.); QNTFERON TB1+ Ag Value 0 IU/mL (.); QNTFERON TB2+ Ag Value 0 IU/mL (.); QNTIFERON TB Positive Criteria Negative (Negative)
== END | disposition home or self-care (01) ==
LOC: MTLAB 12:37
PROVIDERS: PCP Family Medicine; Referring Provider Physician Assistant Medical; Visit Provider Physician Assistant Medical
DX: L40.0 Psoriasis vulgaris (principal); L40.59 Other psoriatic arthropathy; L73.2 Hidradenitis suppurativa; Z79.899 Other long term (current) drug therapy; F17.200 Nicotine dependence, unspecified, uncomplicated
CPT/HCPCS: 36415; 86480; 86704

== ENCOUNTER → 2024-02-04 | Outpatient (CLI) | payer OTHER, SELFPAY ==
--- NOTE | 2024-02-04 15:56 | BI_ITS ---
MAMMOGRAPHY - BILATERAL SCREENING REASON FOR EXAM: Female, 43 years old. Routine annual screening examination. PERTINENT HISTORY: Mother with breast cancer. Aunt with breast cancer. TECHNIQUE: Digital bilateral breast dannie (3D mammographic acquisition) in the CC and MLO projections. 2-D mediolateral oblique (MLO) and craniocaudad (CC) views of both breasts were obtained. CAD: Full Field Digital Mammography with Computer Added Detection was performed. COMPARISON: Comparison is made with prior study dated January 27, 2023 and January 23, 2022. FINDINGS: Breast Composition: The breasts are extremely dense, which lowers the sensitivity of mammography. There are no dominant masses or suspicious calcifications. A tissue clip marker is seen in the upper lateral aspect of the right breast. This is seen within a 1.7 cm x 1.5 cm nodule. No other significant abnormalities are identified. There has been no significant change since the prior study. BI/SCRN MAMM (CAD)W/DANNIE BILAT IMPRESSION: Stable bilateral screening mammogram. Yearly follow-up mammogram recommended. (A) ASSESSMENT CATEGORY: BIRADS Category 2: Benign. A letter regarding these results will be sent to the patient by the facility within 30 days. Approximately 10% of breast cancers are not detected by mammography. A normal mammogram should not delay biopsy of a clinically suspicious abnormality. [id number] Electronically Signed: Osiel Jackson MD at 8:37 EDT ,
== END | disposition home or self-care (01) ==
LOC: OPBI 15:56
PROVIDERS: PCP Family Medicine; Referring Provider Nurse Practitioner Women's Health; Visit Provider Nurse Practitioner Women's Health
DX: Z12.31 Encounter for screening mammogram for malignant neoplasm of breast (principal); Z80.3 Family history of malignant neoplasm of breast
CPT/HCPCS: 77063; 77067

== ENCOUNTER → 2024-05-06 | Outpatient (CLI) | payer OTHER, SELFPAY ==
[2024-05-11 04:08] LABS: Chlamydia By Nucleic Acid AMP Negative (Negative); Gonococcus By Nucleic Acid AMP Negative (Negative)
== END | disposition home or self-care (01) ==
LOC: LABSPEC 16:30
PROVIDERS: PCP Family Medicine; Referring Provider Advanced Practice Midwife; Visit Provider Advanced Practice Midwife
DX: M54.9 Dorsalgia, unspecified (principal); Z20.2 Contact with and (suspected) exposure to infections with a predominantly sexual mode of transmission
CPT/HCPCS: 87070; 87086; 87205; 87491; 87591

== ENCOUNTER → 2024-09-07 | Outpatient (CLI) | payer OTHER, SELFPAY ==
[2024-09-09 17:07] LABS: QNTFERON TB Mitogen Value > 10.00 IU/mL (.); QNTFERON TB Nil Value 0 IU/mL (.); QNTFERON TB1+ Ag Value 0 IU/mL (.); QNTFERON TB2+ Ag Value 0 IU/mL (.); QNTIFERON TB Positive Criteria Negative (Negative)
== END | disposition home or self-care (01) ==
LOC: MTLAB 14:33
PROVIDERS: PCP Family Medicine; Referring Provider Physician Assistant Medical; Visit Provider Physician Assistant Medical
DX: L40.0 Psoriasis vulgaris (principal); Z79.899 Other long term (current) drug therapy; L73.2 Hidradenitis suppurativa
CPT/HCPCS: 36415; 86480

== ENCOUNTER → 2025-02-07 | Outpatient (CLI) | payer OTHER, SELFPAY ==
--- NOTE | 2025-02-07 08:00 | BI_ITS ---
EXAM: SCRN MAMM (CAD)W/DANNIE BILAT DATE: 02/07/2025 CLINICAL HISTORY: F, Age 44 y/o , SCREENING MAMMOGRAM FOR BREAST CANCER BREAST CANCER RISK ASSESSMENT: Has not been calculated. TECHNIQUE: Bilateral screening digital breast tomosynthesis with 2D and 3D images. Computer aided detection. COMPARISON: Prior exam(s) dated 02/04/2024 and 01/27/2023. FINDINGS: TISSUE DENSITY: The breast tissue is heterogenously dense, which may obscure small masses. Bilateral Breast Mammographic Findings: There are no suspicious masses, suspicious clusters of microcalcifications, architectural distortion or secondary signs of malignancy identified in the left breast. Stable nodular masslike densities are seen in the left breast. A 1 cm new masslike density is seen in the lateral, far posterior aspect of the right breast. Further workup is indicated. A radiopaque clip is seen in the lateral aspect of the right breast. The biopsy was benign. The mass at this location is stable. BI/SCRN MAMM (CAD)W/DANNIE BILAT IMPRESSION: OVERALL FINAL ASSESSMENT: BIRADS 0 Incomplete: Need additional imaging evaluati on and/or prior mammograms for comparison. RECOMMENDATION: Incomplete: Need additional imaging evaluation and/or prior mammograms for comp arison. Patient should return for a LM and rolled CC view as well as a spot compression CC view of the right breast density. An ultrasound may also be needed. A letter with findings and recommendations will be mailed to the patient. Reading Location: [id number]
== END | disposition home or self-care (01) ==
LOC: OPBI 07:49
PROVIDERS: PCP Family Medicine; Referring Provider Nurse Practitioner Women's Health; Visit Provider Nurse Practitioner Women's Health
DX: Z12.31 Encounter for screening mammogram for malignant neoplasm of breast (principal)
CPT/HCPCS: 77063; 77067

== ENCOUNTER → 2025-02-10 | Outpatient (CLI) | payer OTHER, SELFPAY ==
[2025-02-10 15:57] LABS: HIV Nonreactive (Nonreactive); Syphilis Antibodies Nonreactive (Nonreactive)
[2025-02-13 15:07] LABS: HCV Quant. RNA PCR HCV Not Detected IU/mL (.)
== END | disposition home or self-care (01) ==
PROVIDERS: PCP Family Medicine; Referring Provider Nurse Practitioner Women's Health; Visit Provider Nurse Practitioner Women's Health
DX: Z20.2 Contact with and (suspected) exposure to infections with a predominantly sexual mode of transmission (principal)
CPT/HCPCS: 36415; 86695; 86696; 86703; 86780; 87522

== ENCOUNTER → 2025-02-23 | Outpatient (CLI) | payer OTHER, SELFPAY ==
--- NOTE | 2025-02-23 08:56 | BI_ITS ---
EXAM: DIAG MAMM W/CAD, UNILAT; BREAST LIMITED UNILATERAL; RT BRST UNILAT DANNIE ADD-ON 02/23/2025 CLINICAL HISTORY: 44-year-old female presents for right breast findings seen on examination of 02/07/2025. Family history of breast cancer in her mother at 55, maternal aunt in 50s and paternal aunt in 50s. TECHNIQUE: Right Diagnostic digital breast tomosynthesis with 2D and 3D images. Computer aided detection. Also, targeted right breast ultrasound was performed. COMPARISON: Prior exam(s) dated 02/07/2025, 02/04/2024, 01/27/2023. FINDINGS: MAMMOGRAM: TISSUE DENSITY: The breast tissue is heterogenously dense, which may obscure small masses. The mammogram demonstrates that the patient has dense breasts. Supplemental screening with whole breast ultrasound or MRI may be considered for further evaluation. Right breast: Follow-up examination performed for the asymmetry seen in the lateral right breast at posterior depth on examination of 02/07/2025. On the present examination, the asymmetry in the lateral right breast at posterior depth persist. ULTRASOUND: Ultrasound performed of the lateral right breast demonstrates no suspicious sonographic findings. BI/DIAG MAMM W/CAD, UNILAT IMPRESSION: The asymmetry in the lateral right breast may represent dense fibroglandular ti ssues and is probably benign. Recommend short interval diagnostic mammogram of the right breast in six-months for further suzanne luation. Right Breast: BIRADS 3 PROBABLY BENIGN. OVERALL FINAL ASSESSMENT: BIRADS 3 PROBABLY BENIGN. RECOMMENDATION: Short interval follow-up. A letter with findings and recommendations will be mailed to the patient. Reading Location: [id number]
--- NOTE | 2025-02-23 08:56 | BI_ITS ---
EXAM: DIAG MAMM W/CAD, UNILAT; BREAST LIMITED UNILATERAL; RT BRST UNILAT DANNIE ADD-ON 02/23/2025 CLINICAL HISTORY: 44-year-old female presents for right breast findings seen on examination of 02/07/2025. Family history of breast cancer in her mother at 55, maternal aunt in 50s and paternal aunt in 50s. TECHNIQUE: Right Diagnostic digital breast tomosynthesis with 2D and 3D images. Computer aided detection. Also, targeted right breast ultrasound was performed. COMPARISON: Prior exam(s) dated 02/07/2025, 02/04/2024, 01/27/2023. FINDINGS: MAMMOGRAM: TISSUE DENSITY: The breast tissue is heterogenously dense, which may obscure small masses. The mammogram demonstrates that the patient has dense breasts. Supplemental screening with whole breast ultrasound or MRI may be considered for further evaluation. Right breast: Follow-up examination performed for the asymmetry seen in the lateral right breast at posterior depth on examination of 02/07/2025. On the present examination, the asymmetry in the lateral right breast at posterior depth persist. ULTRASOUND: Ultrasound performed of the lateral right breast demonstrates no suspicious sonographic findings. BI/Rt Brst Unilat Dannie Add-On IMPRESSION: The asymmetry in the lateral right breast may represent dense fibroglandular ti ssues and is probably benign. Recommend short interval diagnostic mammogram of the right breast in six-months for further suzanne luation. Right Breast: BIRADS 3 PROBABLY BENIGN. OVERALL FINAL ASSESSMENT: BIRADS 3 PROBABLY BENIGN. RECOMMENDATION: Short interval follow-up. A letter with findings and recommendations will be mailed to the patient. Reading Location: [id number]
== END | disposition home or self-care (01) ==
LOC: OPBI 08:54
PROVIDERS: PCP Family Medicine; Referring Provider Nurse Practitioner Women's Health; Visit Provider Nurse Practitioner Women's Health
DX: N64.89 Other specified disorders of breast (principal)
CPT/HCPCS: 76642; 77061; 77065; G0279

== ENCOUNTER → 2025-08-10 | Outpatient (CLI) | payer OTHER, SELFPAY ==
[2025-08-12 18:08] LABS: QNTFERON TB Mitogen Value > 10.00 IU/mL (.); QNTFERON TB Nil Value 0.02 IU/mL (.); QNTFERON TB1+ Ag Value 0.01 IU/mL (.); QNTFERON TB2+ Ag Value 0.02 IU/mL (.); QNTIFERON TB Positive Criteria Negative (Negative)
== END | disposition home or self-care (01) ==
LOC: MTLAB 11:34
PROVIDERS: PCP Family Medicine; Referring Provider Physician Assistant Medical; Visit Provider Physician Assistant Medical
DX: L40.0 Psoriasis vulgaris (principal)
CPT/HCPCS: 36415; 86480

== ENCOUNTER → 2025-08-25 | Outpatient (CLI) | payer OTHER, SELFPAY ==
--- NOTE | 2025-08-25 14:00 | BI_ITS ---
EXAM: DIAG MAMM W/CAD, UNILAT 08/25/2025 CLINICAL HISTORY: F, Age 44 y/o , BREAST LUMP AND TENDERNESS. Six-month follow-up examination. Prior right ultrasound-guided breast biopsy. Mother with breast cancer. Aunt with breast cancer. TECHNIQUE: Procedure Code: [id number] Modality: MG Procedure: DIAG MAMM W/CAD, UNILAT. Compression spot views were obtained. COMPARISON: Prior exam(s) dated February 23, 2025.. FINDINGS: TISSUE DENSITY: The breasts are extremely dense, which lowers the sensitivity of mammography. Bilateral Breast Mammographic Findings: There is a 1.6 cm well-defined nodule in the upper anterior lateral aspect of the right breast with a tissue clip marker within it. Sonographic correlation recommended. BI/DIAG MAMM W/CAD, UNILAT IMPRESSION: Persistent 1.6 cm well-defined nodule with a tissue clip marker within it. Son ographic correlation recommended. OVERALL FINAL ASSESSMENT BI-RADS 0: INCOMPLETE - NEED ADDITIONAL IMAGING EVALUATION. RECOMMENDATION: Ultrasound Recommended Additional Recommendation none A letter with findings and recommendations will be mailed to the patient. Reading Location: [id number]
--- NOTE | 2025-08-25 14:47 | US_ITS ---
PROCEDURE: BREAST LIMITED UNILATERAL 08/25/2025 REASON FOR EXAM: F, Age 44 y/o , RT BREAST 6 MO F/U COMPARISON: Prior mammogram done earlier in the day.. TECHNIQUE: Procedure Code: [id number] Modality: US Procedure: BREAST LIMITED UNILATERAL there is of the right breast was examined with ultrasound. FINDINGS: Stable 1.3 cm x 1.6 cm 1.5 cm well-defined hypoechoic nodule at the 8 o'clock position of the breast at 5 cm from the nipple. This was previously biopsied with a tissue clip marker is seen. There is a 1.3 cm x 0.8 cm x 0.7 cm cyst at the 9 o'clock position of the breast at 6 cm from the nipple. There is also evidence of a 4 mm x 5 mm x 2 mm cyst at the 10 o'clock position of the breast at 5 cm from the nipple. US/Breast Limited Unilateral IMPRESSION: Status post biopsy of the well-defined nodular density at the 8 o'clock positio n of the breast at 5 cm from the nipple. BI-RADS 2: BENIGN RECOMMENDATION: Routine annual follow-up in 1 Year Reading Location: [facility]
== END | disposition home or self-care (01) ==
PROVIDERS: PCP Family Medicine; Referring Provider Nurse Practitioner Women's Health; Visit Provider Nurse Practitioner Women's Health
DX: R92.8 Other abnormal and inconclusive findings on diagnostic imaging of breast (principal); D24.9 Benign neoplasm of unspecified breast
CPT/HCPCS: 76642; 77061; 77065; G0279